=== PATIENT | male | born 1955 | race Caucasian/White ===

== ENCOUNTER 2018-11-23 01:34 | Emergency (ER) | payer OTHER, BC ==
[~2018-11-23] VITALS: Ht 185.4 cm; Wt 99.8 kg
[2018-11-23 01:38] VITALS: BP_SYST 111
--- NOTE | 2018-11-23 01:38 | NUR ---
PATIENT [facility] [facility] AND TAKEN TO BED 5
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
--- NOTE | 2018-11-23 02:20 | NUR ---
ER Dr. Copeland at bedside examining patient.
[2018-11-23] MEDS ORDERED: IOHEXOL 0 ML IV ONE (02:51)
[2018-11-23 03:01] LABS: HEMATOCRIT 45.6 % (36-54); HEMOGLOBIN 15.3 g/dL (14.0-18.0); MEAN CORPUSCULAR HEMOGLOBIN 31 pg (27-31); MEAN CORPUSCULAR HGB CONC 34 % (32-36); MEAN CORPUSCULAR VOLUME 92 fL (79.0-98.0); PLATELET COUNT (AUTO) 237 K/uL (130-430); RED BLOOD CELL COUNT(AUTO) 4.97 MIL/uL (4.2-6.2); RED CELL DISTRIBUTION WIDTH 16.8 % (9.0-15.0); WHITE BLOOD COUNT (AUTO) 7.5 K/uL (4.8-10.8)
[2018-11-23 03:23] LABS: ATYPICAL LYMPHOCYTES % 0 % (0-0); BAND % (MANUAL) 0 % (0-6); LYMPHOCYTES % (MANUAL) 29 % (20-46)
[2018-11-23 03:24] LABS: BASOPHILS % (MANUAL) 0 % (0-2); EOSINOPHILS % (MANUAL) 3 % (0-7); METAMYELOCYTES % 1 % (0-0); MONOCYTES % (MANUAL) 11 % (0-11); MYELOCYTES % 1 % (0-0)
--- NOTE | 2018-11-23 03:25 | NUR ---
Patient transported to radiology via gurney, accompanied by rad staff.
--- NOTE | 2018-11-23 03:36 | NUR ---
Pt returned from radiology in stable condition
[2018-11-23 03:39] LABS: CALCIUM 9.2 mg/dL (8.4-11.0); CREATININE 1.04 mg/dL (0.55-1.30); POTASSIUM 4.2 mmol/L (3.5-5.1)
[2018-11-23 03:45] LABS: ALBUMIN 3.4 g/dL (3.4-4.8); TOTAL BILIRUBIN 0.5 mg/dL (0.0-1.0)
--- NOTE | 2018-11-23 04:30 | NUR ---
Pt is sleeping in bed, no acute distress noted.
--- NOTE | 2018-11-23 05:48 | NUR ---
Dr. Copeland at bedside discussing results with patient.
[2018-11-23] MEDS ORDERED: MORPHINE 4 MG/ML INJ. SYRINGE IVP ONE (06:00)
--- NOTE | 2018-11-23 06:26 | NUR ---
Pt is resting in bed and states Morphine has helped with his pain. Will continue to monitor.
--- NOTE | 2018-11-23 06:27 | NUR ---
Patient will be discharged but does not have any means of transport. Pt is paraplegic and uses power wheelchair to get around. States he needs to be transported by ambulance.
[2018-11-23 07:09] VITALS: BP_SYST 122
--- NOTE | 2018-11-23 07:10 | NUR ---
Patient given written and verbal discharge instructions and verbalizes understanding. ER MD discussed with patient the results and treatment provided. Patient in stable condition. ID arm band removed. IV catheter removed intact and dressing applied, no active bleeding. Rx of [place] given. Patient educated on pain management and to follow up with PMD. Pain Scale 0. Opportunity for questions provided and answered. Medication side effect fact sheet provided.
== END 2018-11-23 07:09 | disposition home or self-care (01) ==
LOC: SED 01:34
DX: K43.9 Ventral hernia without obstruction or gangrene (principal); K80.20 Calculus of gallbladder without cholecystitis without obstruction; Z88.1 Allergy status to other antibiotic agents
CPT/HCPCS: 36415; 74176; 80053; 85007; 85027; 96374; 99284; J2270; Q9967

== ENCOUNTER 2024-03-04 02:02 | Inpatient (IN) | payer OTHER, MEDICARE ==
[~2024-03-04] VITALS: Ht 185.4 cm; Wt 112.9 kg
[2024-03-04 02:16] VITALS: BP_SYST 117; PULSE 68; RESP 18; TEMP 98.9; O2SAT 95
[2024-03-04] MEDS: NACL 0.9% 1,000 ML IV ONE (03:50)
[2024-03-04 03:53] LABS: BASOPHILS % (AUTO) 0.2 % (0.0-2.0); EOSINOPHILS % (AUTO) 0.6 % (0.0-4.0); HEMATOCRIT 34.9 % (36-54); HEMOGLOBIN 12.1 g/dL (14.0-18.0); LYMPHOCYTES # (AUTO) 0.6 K/uL (1.0-5.5); LYMPHOCYTES % (AUTO) 9.8 % (20.5-51.5); MEAN CORPUSCULAR HEMOGLOBIN 35 pg (27-31); MEAN CORPUSCULAR HGB CONC 35 % (32-36); MEAN CORPUSCULAR VOLUME 102 fL (79.0-98.0); MONOCYTES # (AUTO) 0.4 K/uL (0.0-1.0); MONOCYTES % (AUTO) 5.8 % (1.7-9.3); NEUTROPHILS # (AUTO) 5.3 K/uL (1.8-7.7); NEUTROPHILS % (AUTO) 83.6 % (40.0-70.0); PLATELET COUNT (AUTO) 243 K/uL (130-430); RED BLOOD CELL COUNT(AUTO) 3.41 MIL/uL (4.2-6.2); RED CELL DISTRIBUTION WIDTH 14.6 % (9.0-15.0); WHITE BLOOD COUNT (AUTO) 6.4 K/uL (4.8-10.8)
[2024-03-04 04:14] LABS: ALBUMIN 3.1 g/dL (3.4-4.8); CALCIUM 8.6 mg/dL (8.4-11.0); CREATININE 0.89 mg/dL (0.55-1.30); POTASSIUM 4.1 mmol/L (3.5-5.1); TOTAL BILIRUBIN 0.3 mg/dL (0.0-1.0)
[2024-03-04] MEDS ORDERED: FLUT16SP16 NS (07:25)
[2024-03-04] MEDS ORDERED: RELU120T PO (07:25)
[2024-03-04] MEDS ORDERED: FLUT1BLS19 INH (07:25)
[2024-03-04] MEDS ORDERED: BACL10TA PO (07:25)
[2024-03-04] MEDS ORDERED: DULO60CA65 PO (07:25)
[2024-03-04] MEDS ORDERED: VIBE75TA PO (07:25)
[2024-03-04] MEDS ORDERED: NAPR-690 PO (07:25)
[2024-03-04] MEDS ORDERED: TAMS0.4C96 PO (07:25)
[2024-03-04] MEDS ORDERED: MIRA50TA PO (07:25)
[2024-03-04] MEDS ORDERED: OMEP20CA15 PO (07:25)
[2024-03-04] MEDS ORDERED: MONT-40 PO (07:25)
[2024-03-04] MEDS ORDERED: HYDR-3927 PO (07:25)
[2024-03-04] MEDS ORDERED: BUPR1PAT22 TP (07:25)
[2024-03-04] MEDS ORDERED: LON10 PO (07:25)
[2024-03-04] MEDS ORDERED: FURO40TA5 PO (07:25)
[2024-03-04] MEDS ORDERED: NALO4SPR NS (07:25)
[2024-03-04] MEDS ORDERED: ENZA80TA PO (07:25)
[2024-03-04] MEDS ORDERED: AZEL137S7 NS (07:25)
[2024-03-04] MEDS ORDERED: PRED20TA PO (07:25)
[2024-03-04] MEDS ORDERED: AZIT-93 PO (07:25)
[2024-03-04] MEDS ORDERED: CETI10CA11 PO (07:25)
[2024-03-04] MEDS ORDERED: POTA-360 PO (07:25)
[2024-03-04] MEDS ORDERED: DEXA1TAB PO (07:25)
[2024-03-04] MEDS ORDERED: ROSU10TA72 PO (07:25)
[2024-03-04 08:31] LABS: BILIRUBIN,URINE NEGATIVE (NEGATIVE); BLOOD, URINE 2+ (NEGATIVE); COLOR,URINE YELLOW (YELLOW); GLUCOSE,URINE NEGATIVE (NEGATIVE); KETONES,URINE NEGATIVE (NEGATIVE); LEUKOCYTE ESTERASE ,URINE 3+ (NEGATIVE); NITRITE, URINE NEGATIVE (NEGATIVE); PROTEIN URINE 1+ (NEGATIVE); UROBILINOGEN,URINE 0.2 (0.2-1.0)
[2024-03-04 08:42] LABS: CLARITY/URINE HAZY (CLEAR)
[2024-03-04 08:44] LABS: BACTERIA,URINE MODERATE /HPF (None Seen); WBC,URINE 80-100 /HPF (0-3)
[2024-03-04 08:46] LABS: MUCUS,URINE 1+ /LPF (None Seen)
[2024-03-04 08:54] VITALS: BP_SYST 112; PULSE 84; RESP 18; TEMP 97.5; O2SAT 98
[2024-03-04] MEDS ORDERED: [UNRECOGNIZED DRUG - OTHER] INH SCH (10:00)
[2024-03-04] MEDS ORDERED: NALOXONE HCL 0.4 MG/ML AMP (NARCAN) IVP PRN ×2 (10:00)
[2024-03-04] MEDS ORDERED: RELUGOLIX PO SCH (10:00)
[2024-03-04] MEDS ORDERED: LORazepam 2 MG/ML VIAL IVP PRN (10:00)
[2024-03-04] MEDS ORDERED: NON-FORMULARY MEDICATION (Buprenorphine 1 PATCH) TP SCH (10:00)
[2024-03-04] MEDS ORDERED: FLUTICASONE INH SCH (10:00)
[2024-03-04] MEDS ORDERED: ENZALUTAMIDE PO SCH (10:00)
[2024-03-04] MEDS ORDERED: NON-FORMULARY MEDICATION (Vibegron (Gemtesa) 1 TAB) PO SCH (10:00)
[2024-03-04] MEDS ORDERED: VILANTER INH SCH (10:00)
[2024-03-04] MEDS ORDERED: ACETAMINOPHEN 325 MG TABLET PO PRN ×2 (10:00→11:15)
[2024-03-04] MEDS ORDERED: ONDANSETRON HCL 4 MG/2 ML VIAL IVP PRN (10:00)
[2024-03-04] MEDS ORDERED: NON-FORMULARY MEDICATION (Mirabegron (Myrbetriq) 1 TAB) PO SCH (10:00)
[2024-03-04] MEDS ORDERED: HYDROcodone/ACETAMIN 5-325 MG TAB (NORCO/ VICODIN) PO PRN (10:00)
[2024-03-04 10:44] VITALS: O2SAT 97
[2024-03-04] MEDS: NORMAL SALINE 5 ML DISP.SYRIN IVF SCH (14:00)
[2024-03-04] MEDS: cefTRIAXone 1 GM IVPB PREMIX 50 ML IV SCH (15:30)
[2024-03-04] MEDS: HYDROcodone/ACETAMIN 10-325 MG TAB PO PRN (15:30)
[2024-03-04] MEDS: MINOXIDIL 10 MG TABLET (LONITEN) PO ONE (18:44)
[2024-03-04 20:00] VITALS: BP_SYST 115; PULSE 80; RESP 19; TEMP 98.1; O2SAT 97
[2024-03-04] MEDS: ATORVASTATIN 20 MG TABLET PO SCH (20:38)
[2024-03-04] MEDS: BACLOFEN 10 MG TABLET PO SCH (20:38)
[2024-03-04] MEDS ORDERED: NON-FORMULARY MEDICATION (Rosuvastatin Calcium 1 TAB) PO SCH (21:00)
[2024-03-05] VITALS: BP_SYST 115; PULSE 68; RESP 19; TEMP 98; O2SAT 98
[2024-03-05 07:06] LABS: BASOPHILS % (AUTO) 0.3 % (0.0-2.0); EOSINOPHILS # (AUTO) 0.1 K/uL (0.0-0.4); EOSINOPHILS % (AUTO) 1.1 % (0.0-4.0); HEMOGLOBIN 12.7 g/dL (14.0-18.0); LYMPHOCYTES # (AUTO) 0.6 K/uL (1.0-5.5); LYMPHOCYTES % (AUTO) 9.5 % (20.5-51.5); MEAN CORPUSCULAR HEMOGLOBIN 35 pg (27-31); MEAN CORPUSCULAR HGB CONC 34 % (32-36); MEAN CORPUSCULAR VOLUME 103 fL (79.0-98.0); MONOCYTES # (AUTO) 0.6 K/uL (0.0-1.0); MONOCYTES % (AUTO) 8.6 % (1.7-9.3); NEUTROPHILS # (AUTO) 5.3 K/uL (1.8-7.7); NEUTROPHILS % (AUTO) 80.5 % (40.0-70.0); PLATELET COUNT (AUTO) 252 K/uL (130-430); RED CELL DISTRIBUTION WIDTH 14.7 % (9.0-15.0); WHITE BLOOD COUNT (AUTO) 6.6 K/uL (4.8-10.8)
[2024-03-05 07:37] LABS: CALCIUM 9.1 mg/dL (8.4-11.0); POTASSIUM 3.9 mmol/L (3.5-5.1)
[2024-03-05] MEDS: TAMSULOSIN HCL 0.4 MG CAP PO SCH (08:55)
[2024-03-05] MEDS: POTASSIUM CHLORIDE 20 MEQ TABLET.ER PO SCH (08:56)
[2024-03-05] MEDS: DULoxetine HCL 30 MG CAPSULE.DR (CYMBALTA) PO SCH (08:56)
[2024-03-05] MEDS: MONTELUKAST 10 MG TABLET PO SCH (08:56)
[2024-03-05] MEDS: PANTOPRAZOLE SODIUM 40 MG TAB PO SCH (08:56)
[2024-03-05] MEDS: FUROSEMIDE 40 MG TABLET PO SCH (08:56)
[2024-03-05] MEDS: MINOXIDIL 10 MG TABLET (LONITEN) PO SCH (08:57)
[2024-03-05] MEDS: FLUTICASONE PROPIONATE 50 mCg/SPRAY 16 GM NS SCH (09:00)
[2024-03-05 14:22] VITALS: BP_SYST 130; PULSE 84; RESP 20; TEMP 98.3; O2SAT 96
[2024-03-05 16:00] VITALS: BP_SYST 141; PULSE 98; RESP 20; TEMP 98.3; O2SAT 98
[2024-03-05] MEDS: MYRBETRIQ 50 MG PO ONE (16:12)
[2024-03-05 20:01] VITALS: O2SAT 97
[2024-03-05 20:12] VITALS: BP_SYST 129; PULSE 87; RESP 20; TEMP 98; O2SAT 97
[2024-03-06 08:00] VITALS: BP_SYST 142; PULSE 85; RESP 16; TEMP 98.1; O2SAT 95
[2024-03-06 08:10] LABS: BASOPHILS % (AUTO) 0.3 % (0.0-2.0); EOSINOPHILS # (AUTO) 0.1 K/uL (0.0-0.4); EOSINOPHILS % (AUTO) 1.4 % (0.0-4.0); HEMATOCRIT 36.1 % (36-54); HEMOGLOBIN 12.4 g/dL (14.0-18.0); LYMPHOCYTES # (AUTO) 0.5 K/uL (1.0-5.5); LYMPHOCYTES % (AUTO) 12.8 % (20.5-51.5); MEAN CORPUSCULAR HEMOGLOBIN 35 pg (27-31); MEAN CORPUSCULAR HGB CONC 34 % (32-36); MEAN CORPUSCULAR VOLUME 103 fL (79.0-98.0); MONOCYTES # (AUTO) 0.4 K/uL (0.0-1.0); MONOCYTES % (AUTO) 10.3 % (1.7-9.3); NEUTROPHILS # (AUTO) 3.1 K/uL (1.8-7.7); NEUTROPHILS % (AUTO) 75.2 % (40.0-70.0); PLATELET COUNT (AUTO) 244 K/uL (130-430); RED BLOOD CELL COUNT(AUTO) 3.51 MIL/uL (4.2-6.2); RED CELL DISTRIBUTION WIDTH 14.6 % (9.0-15.0); WHITE BLOOD COUNT (AUTO) 4.1 K/uL (4.8-10.8)
[2024-03-06 08:24] LABS: ALBUMIN 2.8 g/dL (3.4-4.8); CREATININE 0.99 mg/dL (0.55-1.30); POTASSIUM 3.7 mmol/L (3.5-5.1); TOTAL BILIRUBIN 0.4 mg/dL (0.0-1.0); TOTAL PROTEIN, SERUM 6.8 g/dL (6.4-8.3)
[2024-03-06 08:28] LABS: ERYTHROCYTE SEDIMENTATION RATE 49 MM/HR (0-15)
[2024-03-06 09:30] VITALS: O2SAT 95
[2024-03-06] MEDS: ORGOVYX 120 MG PO SCH (10:24)
[2024-03-06] MEDS: VIBEGRON 75 MG PO SCH (10:25)
[2024-03-06] MEDS: ENZALUTAMIDE 80 MG PO SCH (10:26)
[2024-03-06] MEDS: TRELEGY ELLIPTA INH SCH (10:27)
[2024-03-06] MEDS: TAMSULOSIN HCL 0.4 MG CAP PO ONE (10:32)
[2024-03-06] MEDS: MYRBETRIQ 50 MG PO SCH (10:35)
[2024-03-06] MEDS ORDERED: PHENAZOPYRIDINE HCL 100 MG TABLET PO SCH (12:30)
[2024-03-06] MEDS: PHENAZOPYRIDINE HCL 100 MG TABLET PO SCH (12:49)
[2024-03-06 12:55] VITALS: BP_SYST 139; PULSE 74; RESP 15; TEMP 98.2; O2SAT 97
[2024-03-06] MEDS ORDERED: oxyBUTYnin chloride 5 MG TABLET PO PRN (16:30)
[2024-03-06 17:13] VITALS: BP_SYST 102; PULSE 80; RESP 17; TEMP 98; O2SAT 95
[2024-03-06 20:00] VITALS: BP_SYST 117; PULSE 80; RESP 18; TEMP 97.8; O2SAT 96
[2024-03-06 23:55] VITALS: BP_SYST 134; PULSE 69; RESP 18; TEMP 97.3; O2SAT 94
[2024-03-07 08:20] VITALS: O2SAT 95
[2024-03-07 08:30] LABS: BASOPHILS % (AUTO) 0.6 % (0.0-2.0); EOSINOPHILS # (AUTO) 0.1 K/uL (0.0-0.4); EOSINOPHILS % (AUTO) 2.7 % (0.0-4.0); HEMATOCRIT 32.6 % (36-54); HEMOGLOBIN 11.2 g/dL (14.0-18.0); LYMPHOCYTES # (AUTO) 0.5 K/uL (1.0-5.5); LYMPHOCYTES % (AUTO) 12.6 % (20.5-51.5); MEAN CORPUSCULAR HEMOGLOBIN 35 pg (27-31); MEAN CORPUSCULAR HGB CONC 35 % (32-36); MEAN CORPUSCULAR VOLUME 102 fL (79.0-98.0); MONOCYTES # (AUTO) 0.5 K/uL (0.0-1.0); MONOCYTES % (AUTO) 11.5 % (1.7-9.3); NEUTROPHILS % (AUTO) 72.6 % (40.0-70.0); PLATELET COUNT (AUTO) 236 K/uL (130-430); RED CELL DISTRIBUTION WIDTH 14.5 % (9.0-15.0); WHITE BLOOD COUNT (AUTO) 4.1 K/uL (4.8-10.8)
[2024-03-07 08:36] LABS: ERYTHROCYTE SEDIMENTATION RATE 36 MM/HR (0-15)
[2024-03-07 08:54] LABS: CALCIUM 8.8 mg/dL (8.4-11.0); CREATININE 1.01 mg/dL (0.55-1.30); POTASSIUM 3.8 mmol/L (3.5-5.1)
[2024-03-07] MEDS: TAMSULOSIN HCL 0.4 MG CAP PO SCH (10:33)
[2024-03-07 11:08] VITALS: BP_SYST 187; PULSE 120; RESP 18; TEMP 96.3; O2SAT 95
[2024-03-07] MEDS: COMMUNICATION ORDER XX SCH (15:00)
[2024-03-07] MEDS ORDERED: COMMUNICATION ORDER XX SCH (15:00)
[2024-03-07] MEDS: COMMUNICATION ORDER XX ONE (15:00)
[2024-03-07 16:28] VITALS: BP_SYST 165; PULSE 108; RESP 18; TEMP 97; O2SAT 95
[2024-03-07 20:00] VITALS: BP_SYST 129; PULSE 87; RESP 17; TEMP 97.8; O2SAT 96
[2024-03-07] MEDS: DEXAMETHASONE 1 MG TABLET (DECADRON) PO SCH (20:19)
[2024-03-07] MEDS: TRIAMCINOLONE ACETONIDE 0.025% 80 GM CREAM.GM. TP SCH (21:00)
[2024-03-08] VITALS: BP_SYST 113; PULSE 71; RESP 18; TEMP 98; O2SAT 95
[2024-03-08 08:00] VITALS: BP_SYST 117; PULSE 71; RESP 16; TEMP 97.6; O2SAT 97
[2024-03-08 08:30] VITALS: O2SAT 97
[2024-03-08 08:34] LABS: EOSINOPHILS # (AUTO) 0.1 K/uL (0.0-0.4); EOSINOPHILS % (AUTO) 1.7 % (0.0-4.0); HEMATOCRIT 36.3 % (36-54); HEMOGLOBIN 12.5 g/dL (14.0-18.0); LYMPHOCYTES # (AUTO) 0.7 K/uL (1.0-5.5); LYMPHOCYTES % (AUTO) 15.4 % (20.5-51.5); MEAN CORPUSCULAR HEMOGLOBIN 35 pg (27-31); MEAN CORPUSCULAR HGB CONC 34 % (32-36); MEAN CORPUSCULAR VOLUME 102 fL (79.0-98.0); MONOCYTES # (AUTO) 0.4 K/uL (0.0-1.0); MONOCYTES % (AUTO) 9.7 % (1.7-9.3); NEUTROPHILS # (AUTO) 3.2 K/uL (1.8-7.7); NEUTROPHILS % (AUTO) 72.2 % (40.0-70.0); PLATELET COUNT (AUTO) 241 K/uL (130-430); RED BLOOD CELL COUNT(AUTO) 3.56 MIL/uL (4.2-6.2); RED CELL DISTRIBUTION WIDTH 14.5 % (9.0-15.0); WHITE BLOOD COUNT (AUTO) 4.4 K/uL (4.8-10.8)
[2024-03-08 08:37] LABS: ERYTHROCYTE SEDIMENTATION RATE 57 MM/HR (0-15)
[2024-03-08 08:59] LABS: CALCIUM 9.1 mg/dL (8.4-11.0); CREATININE 1.05 mg/dL (0.55-1.30); POTASSIUM 4.1 mmol/L (3.5-5.1)
[2024-03-08] MEDS: LIDOCAINE TOPICAL OINT 5%, 35 GM TP PRN (11:57)
[2024-03-08] MEDS ORDERED: [UNRECOGNIZED DRUG - REMARK] PO SCH (12:15)
[2024-03-08 12:43] VITALS: BP_SYST 104; PULSE 81; RESP 16; TEMP 97.4; O2SAT 96
[2024-03-08] MEDS: CETIRIZINE 10MG TABLET PO SCH (12:49)
[2024-03-08] MEDS: DUPIXENT 300 MG/2 ML SUBCUT ONE (13:03)
[2024-03-08] MEDS: AZELASTINE HYDROCHLORIDE INH ONE (13:32)
[2024-03-08] MEDS: NALOXONE HCL 0.4 MG/ML AMP (NARCAN) IVP ONE (14:15)
[2024-03-08] MEDS: oxyBUTYnin chloride 5 MG TABLET PO SCH (14:41)
[2024-03-08] MEDS: OXYCODONE/ACETAMINOPHEN 5-325 TABLET PO PRN (14:42)
[2024-03-08 16:10] VITALS: BP_SYST 133; PULSE 85; RESP 16; TEMP 97.4; O2SAT 95
[2024-03-08] MEDS ORDERED: AZELASTINE HYDROCHLORIDE SCH (21:00)
[2024-03-09 01:18] VITALS: BP_SYST 122; PULSE 66; RESP 19; TEMP 97.1; O2SAT 96
[2024-03-09 07:38] LABS: ALBUMIN 2.9 g/dL (3.4-4.8); CALCIUM 9.2 mg/dL (8.4-11.0); CREATININE 1.06 mg/dL (0.55-1.30); POTASSIUM 3.5 mmol/L (3.5-5.1); TOTAL BILIRUBIN 0.3 mg/dL (0.0-1.0); TOTAL PROTEIN, SERUM 7.3 g/dL (6.4-8.3)
[2024-03-09 07:44] LABS: BASOPHILS # (AUTO) 0.1 K/uL (0.0-0.2); BASOPHILS % (AUTO) 0.8 % (0.0-2.0); EOSINOPHILS # (AUTO) 0.1 K/uL (0.0-0.4); EOSINOPHILS % (AUTO) 1.8 % (0.0-4.0); HEMATOCRIT 36.8 % (36-54); HEMOGLOBIN 12.8 g/dL (14.0-18.0); LYMPHOCYTES # (AUTO) 0.8 K/uL (1.0-5.5); LYMPHOCYTES % (AUTO) 11.5 % (20.5-51.5); MEAN CORPUSCULAR HEMOGLOBIN 36 pg (27-31); MEAN CORPUSCULAR HGB CONC 35 % (32-36); MEAN CORPUSCULAR VOLUME 104 fL (79.0-98.0); MONOCYTES # (AUTO) 0.7 K/uL (0.0-1.0); MONOCYTES % (AUTO) 10.2 % (1.7-9.3); NEUTROPHILS # (AUTO) 5.1 K/uL (1.8-7.7); NEUTROPHILS % (AUTO) 75.7 % (40.0-70.0); RED BLOOD CELL COUNT(AUTO) 3.55 MIL/uL (4.2-6.2); RED CELL DISTRIBUTION WIDTH 14.4 % (9.0-15.0); WHITE BLOOD COUNT (AUTO) 6.8 K/uL (4.8-10.8)
[2024-03-09 08:00] VITALS: BP_SYST 115; PULSE 72; RESP 16; TEMP 96; O2SAT 96
[2024-03-09 08:04] LABS: ERYTHROCYTE SEDIMENTATION RATE 58 MM/HR (0-15)
[2024-03-09] MEDS: AZELASTINE HYDROCHLORIDE INH SCH (09:00)
[2024-03-09 10:04] LABS: PLATELET COUNT (AUTO) 241 K/uL (130-430)
[2024-03-09 12:00] VITALS: BP_SYST 120; PULSE 64; RESP 16; TEMP 97.5; O2SAT 95
[2024-03-09] MEDS: OXYCODONE/ACETAMINOPHEN 5-325 TABLET PO PRN (12:59)
[2024-03-09 16:00] VITALS: BP_SYST 121; PULSE 71; RESP 18; TEMP 97.1; O2SAT 94
[2024-03-09 20:00] VITALS: BP_SYST 123; PULSE 68; RESP 18; TEMP 98.1; O2SAT 98
[2024-03-10] VITALS: BP_SYST 127; PULSE 64; RESP 18; TEMP 97.9
[2024-03-10 08:00] VITALS: BP_SYST 158; PULSE 58; RESP 16; TEMP 97.9; O2SAT 97
[2024-03-10] MEDS ORDERED: TRIA15CR3 TP (11:29)
[2024-03-10] MEDS ORDERED: OXYB5TAB21 PO (11:29)
[2024-03-10] MEDS ORDERED: PERC10 PO (11:29)
[2024-03-10] MEDS ORDERED: HYDR-3927 PO (11:29)
[2024-03-10] MEDS ORDERED: LEVO-62 PO (11:29)
[2024-03-10 12:00] VITALS: BP_SYST 133; PULSE 60; RESP 16; TEMP 98.1; O2SAT 98
[2024-03-10 12:50] VITALS: BP_SYST 133; PULSE 60; RESP 16; TEMP 98.1; O2SAT 98
[2024-03-10 13:46] VITALS: BP_SYST 133; PULSE 60; RESP 16; TEMP 98.1; O2SAT 98
== END 2024-03-10 14:15 | disposition home health service (06) | DRG 699 ==
LOC: SED 02:02 → SMU 06:12
PROVIDERS: ADMIT Preventive Medicine Preventive Medicine/Occupational Environmental Medicine; ATTEND Preventive Medicine Preventive Medicine/Occupational Environmental Medicine
DX: N30.40 Irradiation cystitis without hematuria (principal); E87.1 Hypo-osmolality and hyponatremia; N13.6 Pyonephrosis; R78.81 Bacteremia; B95.7 Other staphylococcus as the cause of diseases classified elsewhere; E88.09 Other disorders of plasma-protein metabolism, not elsewhere classified; D72.819 Decreased white blood cell count, unspecified; D64.9 Anemia, unspecified; B96.89 Other specified bacterial agents as the cause of diseases classified elsewhere; B96.20 Unspecified Escherichia coli [E. coli] as the cause of diseases classified elsewhere; K21.9 Gastro-esophageal reflux disease without esophagitis; I10 Essential (primary) hypertension; N40.1 Benign prostatic hyperplasia with lower urinary tract symptoms; K46.9 Unspecified abdominal hernia without obstruction or gangrene; G89.4 Chronic pain syndrome; Y84.2 Radiological procedure and radiotherapy as the cause of abnormal reaction of the patient, or of later complication, without mention of misadventure at the time of the procedure; Y82.8 Other medical devices associated with adverse incidents; Z88.2 Allergy status to sulfonamides; Z88.8 Allergy status to other drugs, medicaments and biological substances; Z79.899 Other long term (current) drug therapy; Z90.49 Acquired absence of other specified parts of digestive tract; Z85.46 Personal history of malignant neoplasm of prostate
CPT/HCPCS: 36415; 80048; 80053; 81000; 81001; 81015; 85025; 85651; 87040; 87086; 87186; 99285; J0696; J7030